=== PATIENT | female | born 1980 | race Hispanic/Latino ===

== ENCOUNTER 2021-10-23 20:46 | Emergency (ER) | payer OTHER | END 2021-10-23 21:48 | disposition home or self-care (01) | LOC: CSHERS 20:46 | DX: O98.513 Other viral diseases complicating pregnancy, third trimester (principal); U07.1 COVID-19; Z3A.37 37 weeks gestation of pregnancy | CPT/HCPCS: 99283 ==

== ENCOUNTER 2021-11-01 14:09 | Inpatient (IN) | payer OTHER ==
[2021-11-01] MEDS ORDERED: Butorphanol Tartrate 1 MG/ML VIAL SLOW IVP PRN (14:44)
[2021-11-01] MEDS ORDERED: Promethazine HCl 25 MG/ML VIAL IM PRN (14:44)
[2021-11-01] MEDS ORDERED: Acetaminophen 500 MG TAB PO PRN (14:44)
[2021-11-01] MEDS ORDERED: Zolpidem Tartrate 5 MG TAB PO PRN (14:44)
[2021-11-01] MEDS ORDERED: Ibuprofen 800 MG TAB PO PRN (14:44)
[2021-11-01] MEDS ORDERED: hydrALAZINE 20 MG/ML VIAL SLOW IVP PRN (14:44)
[2021-11-01] MEDS ORDERED: Diphenoxylate HCl/Atropine Tablet PO PRN ×2 (14:44)
[2021-11-01] MEDS ORDERED: Carboprost 250 MCG/ML AMP IM PRN (14:44)
[2021-11-01] MEDS ORDERED: HYDROcodone/Acetaminophen 5/325 mg Tablet PO PRN (14:44)
[2021-11-01] MEDS ORDERED: Misoprostol 200 MCG TAB PR PRN (14:44)
[2021-11-01] MEDS ORDERED: Lidocaine 1% (PF) 30 ML VIAL SC PRN (14:44)
[2021-11-01] MEDS ORDERED: Ondansetron PF 4 MG/2 ML Vial IVP PRN (14:44)
[2021-11-01] MEDS ORDERED: NS w/ Oxytocin 30 units 500 ML IV SCH (14:45)
[2021-11-01 15:53] VITALS: BMI 36.0
[2021-11-01 15:54] LABS: Hemoglobin 11.6 g/dL (12.0-15.5); Mean Corpuscular HGB CONC 32.9 g/dL (32.0-36.0); Mean Corpuscular Hemoglobin 28.5 pg (27.0-33.0); Mean Corpuscular Volume 86.7 fl (81.6-98.3); Mean Platelet Volume 10.9 fl (7.4-10.4); Platelet Count 250 10x3/uL (150-450); RBC Distribution Width 14.1 % (11.5-14.5); Red Blood Cell (RBC) Count 4.07 10x6/uL (3.90-5.03); White Blood Cell (WBC) Count 10.4 10x3/uL (3.5-10.5)
[2021-11-01 16:19] LABS: Syphilis Antibody Nonreactive (Nonreactive); Syphilis Antibody Index 0.08 S/CO (<1.00 Non-Reactive)
[2021-11-01 16:20] LABS: Hep B Surf Ag Non-Reactive S/CO (NonReactive)
[2021-11-01 16:21] LABS: HBSAg Index 0.18 S/CO (0-0.99)
[2021-11-01] MEDS: NS w/ Oxytocin 30 units 500 ML IV SCH (16:52)
[2021-11-03] MEDS ORDERED: Bicitra 30 ML UDCUP PO PRN (19:34)
[2021-11-03] MEDS ORDERED: Famotidine/PF 20 mg/2ml Vial SLOW IVP PRN (19:34)
[2021-11-03] MEDS ORDERED: Clindamycin/D5W 900 MG in Premix Bag 1 BAG IVPB SCH (19:45)
[2021-11-03] MEDS ORDERED: Morphine PF 10 MG/10 ML VIAL ONE (21:31)
[2021-11-03] MEDS ORDERED: Fentanyl 100 MCG/2 ML VIAL ONE (21:31)
[2021-11-03] MEDS ORDERED: Ondansetron PF 4 MG/2 ML Vial ONE (22:46)
[2021-11-03] MEDS ORDERED: Ketorolac Tromethamine 30 MG/ML VIAL ONE (22:47)
[2021-11-03] MEDS ORDERED: Ondansetron HCl/PF 4 MG/2 ML Vial IVP PRN (23:22)
[2021-11-03] MEDS ORDERED: Promethazine HCl 25 MG/ML VIAL IM PRN (23:22)
[2021-11-03] MEDS ORDERED: Naloxone HCl 0.4 mg/ml Vial IVP PRN ×2 (23:22)
[2021-11-03] MEDS ORDERED: Moisturizing Cream (Eucerin) 113 GM JAR TOP PRN (23:22)
[2021-11-03] MEDS ORDERED: Naloxone HCl 0.4 mg/ml Vial IV PRN (23:22)
[2021-11-03] MEDS ORDERED: Promethazine HCl 25 MG SUPP PR PRN (23:22)
[2021-11-03] MEDS ORDERED: Meperidine HCl/PF 25 MG/ML VIAL SLOW IVP PRN (23:22)
[2021-11-03] MEDS ORDERED: Ondansetron PF 4 MG/2 ML Vial IVP PRN (23:22)
[2021-11-03] MEDS ORDERED: Fentanyl 100 MCG/2 ML VIAL SLOW IVP PRN (23:22)
[2021-11-03] MEDS ORDERED: HYDROmorphone 2 MG/ML VIAL SLOW IVP PRN (23:22)
[2021-11-03] MEDS ORDERED: Communication Order-Pharmacy FS SCH (23:30)
[2021-11-04] MEDS: diphenhydrAMINE 50 MG/ML VIAL IVP PRN ×2 (00:04→04:45)
[2021-11-04] MEDS: NS w/ Oxytocin 30 units 500 ML IV SCH (00:23)
[2021-11-04] MEDS ORDERED: Misoprostol 200 MCG TAB PR PRN (02:00)
[2021-11-04] MEDS ORDERED: Zolpidem Tartrate 5 MG TAB PO PRN (02:00)
[2021-11-04] MEDS ORDERED: hydrALAZINE 20 MG/ML VIAL SLOW IVP PRN (02:00)
[2021-11-04] MEDS ORDERED: Promethazine HCl 25 MG/ML VIAL IM PRN (02:00)
[2021-11-04] MEDS ORDERED: Lanolin Ointment 7 GM TUBE TOP PRN (02:00)
[2021-11-04] MEDS ORDERED: Ondansetron PF 4 MG/2 ML Vial IVP PRN (02:00)
[2021-11-04] MEDS ORDERED: Varicella virus, LIVE 0.5 ML VIAL SC ONE (02:00)
[2021-11-04] MEDS ORDERED: NS w/ Oxytocin 30 units 500 ML IV SCH (02:00)
[2021-11-04] MEDS ORDERED: Boostrix 0.5 ML (Tdap) VIAL IM ONE (02:00)
[2021-11-04] MEDS ORDERED: Measles/Mumps/Rubella 10 MCG/0.5 ML VIAL SC ONE (02:00)
[2021-11-04 04:27] LABS: Hemoglobin 10.5 g/dL (12.0-15.5); Mean Corpuscular HGB CONC 32.8 g/dL (32.0-36.0); Mean Corpuscular Hemoglobin 28.8 pg (27.0-33.0); Mean Corpuscular Volume 87.9 fl (81.6-98.3); Mean Platelet Volume 11.2 fl (7.4-10.4); Platelet Count 212 10x3/uL (150-450); RBC Distribution Width 14.2 % (11.5-14.5); Red Blood Cell (RBC) Count 3.64 10x6/uL (3.90-5.03); White Blood Cell (WBC) Count 12.4 10x3/uL (3.5-10.5)
[2021-11-04] MEDS: Ketorolac Tromethamine 30 MG/ML VIAL IVP PRN ×2 (04:46→12:54)
[2021-11-04] MEDS: Ferrous Sulfate 325 MG TAB PO SCH ×2 (08:36→08:50)
[2021-11-04] MEDS: Prenatal Vitamin 1 TAB PO SCH (08:36)
[2021-11-04] MEDS: Docusate 100 MG CAP PO SCH ×2 (08:36→21:35)
[2021-11-04] MEDS: HYDROcodone/Acetaminophen 5/325 mg Tablet PO PRN ×4 (08:46→21:36)
[2021-11-04] MEDS: Enoxaparin Sodium 40 MG/0.4 ML SYRINGE SC SCH (08:46)
[2021-11-04] MEDS: diphenhydrAMINE 25 MG CAP PO PRN ×2 (13:01→21:40)
[2021-11-05] MEDS: Ibuprofen 800 MG TAB PO SCH ×3 (05:32→21:47)
[2021-11-05] MEDS: HYDROcodone/Acetaminophen 5/325 mg Tablet PO PRN ×4 (05:32→21:47)
[2021-11-05] MEDS: Prenatal Vitamin 1 TAB PO SCH (09:00)
[2021-11-05] MEDS: Docusate 100 MG CAP PO SCH ×2 (09:01→21:47)
[2021-11-05] MEDS: Ferrous Sulfate 325 MG TAB PO SCH ×2 (09:01→20:10)
[2021-11-05] MEDS: Enoxaparin Sodium 40 MG/0.4 ML SYRINGE SC SCH (09:02)
[2021-11-05] MEDS: Simethicone Chewable 80 MG TAB PO PRN (12:17)
[2021-11-06] MEDS: Simethicone Chewable 80 MG TAB PO PRN (00:40)
[2021-11-06] MEDS: HYDROcodone/Acetaminophen 5/325 mg Tablet PO PRN (05:05)
[2021-11-06] MEDS: Ibuprofen 800 MG TAB PO SCH (05:05)
[2021-11-06] MEDS: Docusate 100 MG CAP PO SCH (09:20)
[2021-11-06] MEDS: Prenatal Vitamin 1 TAB PO SCH (09:20)
[2021-11-06] MEDS: Enoxaparin Sodium 40 MG/0.4 ML SYRINGE SC SCH (09:20)
[2021-11-06] MEDS: Ferrous Sulfate 325 MG TAB PO SCH (09:21)
[2021-11-06 11:22] VITALS: BP 121/66; TEMP 97.8
== END 2021-11-06 13:43 | disposition home or self-care (01) | DRG 787 ==
LOC: CSHLD 14:09 → CSHANTE 11-02 18:05
PROVIDERS: ADMIT Obstetrics & Gynecology; ATTEND Obstetrics & Gynecology
PROC: 3E033VJ Introduction of Other Hormone into Peripheral Vein, Percutaneous Approach (ICD-10-PCS; principal; 2021-11-02)
PROC: 10D00Z1 Extraction of Products of Conception, Low, Open Approach (ICD-10-PCS; 2021-11-03)
DX: O13.4 Gestational [pregnancy-induced] hypertension without significant proteinuria, complicating childbirth (principal); O41.03X0 Oligohydramnios, third trimester, not applicable or unspecified; O32.1XX0 Maternal care for breech presentation, not applicable or unspecified; O99.214 Obesity complicating childbirth; E66.01 Morbid (severe) obesity due to excess calories; Z90.89 Acquired absence of other organs; Z37.0 Single live birth; Z3A.38 38 weeks gestation of pregnancy; Z86.16 Personal history of COVID-19; Z88.1 Allergy status to other antibiotic agents; Z88.6 Allergy status to analgesic agent; O76 Abnormality in fetal heart rate and rhythm complicating labor and delivery
CPT/HCPCS: 36415; 51702; 76819; 85027; 86780; 86850; 86900; 86901; 87340; J1200; J1580; J1650; J1885; J2274; J2405; J2590; J3010; J3490

== ENCOUNTER 2024-11-22 09:48 | Outpatient (CLI) | payer BC | END 2024-11-22 09:49 | disposition home or self-care (01) | LOC: CSHDTY/OP 09:48 | PROVIDERS: ATTEND Nurse Practitioner Family | DX: Z71.3 Dietary counseling and surveillance (principal) | CPT/HCPCS: 97802 ==

== ENCOUNTER 2025-01-07 10:29 | Outpatient (CLI) | payer BC | END 2025-01-07 10:30 | disposition home or self-care (01) | LOC: CSHDTY/OP 10:29 | PROVIDERS: ATTEND Nurse Practitioner Family | DX: Z71.3 Dietary counseling and surveillance (principal) | CPT/HCPCS: 97802 ==